=== PATIENT | female | born 1950 | race Caucasian/White ===

== ENCOUNTER 2016-11-22 13:06 | Emergency (ER) | payer SELFPAY ==
[~2016-11-22] VITALS: Ht 152.4 cm; Wt 76.0 kg
[2016-11-22 13:10] VITALS: Ht 152.4 cm; Wt 76.0 kg
[2016-11-23] MEDS ORDERED: ONDA4TAB14 PO (11:36)
[2016-11-23] MEDS ORDERED: IBUP-1542 PO (11:36)
[2016-11-23] MEDS ORDERED: HYDR-906 PO (11:36)
[2016-11-23] MEDS ORDERED: TAMS-14 PO (11:36)
== END 2016-11-22 20:01 | disposition left against medical advice (07) ==
LOC: E/R 13:06
DX: Z53.21 Procedure and treatment not carried out due to patient leaving prior to being seen by health care provider (principal)

== ENCOUNTER 2016-11-23 08:50 | Emergency (ER) | payer OTHER ==
[~2016-11-23] VITALS: Ht 157.5 cm; Wt 77.0 kg
[2016-11-23 08:56] VITALS: Ht 157.5 cm; Wt 77.0 kg
[2016-11-23] MEDS ORDERED: SOD CHLORIDE 0.9% 1,000 ML IV STA (09:34)
[2016-11-23 10:00] LABS: BASOPHIL # 0.1 10^3/ul (0.0-0.1); EOSINOPHILS # 0.1 10^3/ul (0.0-0.5); EOSINOPHILS % 1.8 % (0.0-7.0); HEMOGLOBIN 13.8 g/dl (12.0-16.0); LYMPHOCYTES % 40.2 % (15.0-51.0); MEAN CORPUSCULAR HEMOGLOBIN 29.4 pg (29.0-33.0); MEAN CORPUSCULAR HGB CONC 32.9 g/dl (32.0-37.0); MEAN CORPUSCULAR VOLUME 89.6 fl (82.0-101.0); MEAN PLATELET VOLUME 10.3 fl (7.4-10.4); MONOCYTE # 0.5 10^3/ul (0.3-0.9); MONOCYTES % 9.9 % (0.0-11.0); NEUTROPHIL # 2.4 10^3/ul (1.6-7.5); NEUTROPHILS % 46.9 % (39.0-77.0); PLATELET COUNT 282 10^3/UL (140-415); RED BLOOD COUNT 4.69 10^6/ul (4.20-5.40); RED CELL DISTRIBUTION WIDTH 13.5 % (11.5-14.5); WHITE BLOOD COUNT 5.1 10^3/ul (4.8-10.8)
[2016-11-23 10:08] LABS: ADD UMIC YES; UR ASCORBIC ACID NEGATIVE (NEGATIVE); UR BILIRUBIN (Dip) NEGATIVE (NEGATIVE); UR BLOOD (Dip) 1+ mg/dL (NEGATIVE); UR CLARITY SLIGHTLY CLOUDY (CLEAR); UR COLOR YELLOW (YELLOW); UR GLUCOSE (Dip) NEGATIVE (NEGATIVE); UR KETONES (Dip) NEGATIVE (NEGATIVE); UR LEUKOCYTE ESTERASE (Dip) TRACE Leu/ul (NEGATIVE); UR NITRITE (Dip) NEGATIVE (NEGATIVE); UR RBC 0 /HPF (0-5); UR SPECIFIC GRAVITY (Dip) 1.002 (1.003-1.030); UR TOTAL PROTEIN (Dip) NEGATIVE (NEGATIVE); UR UROBILINOGEN (Dip) NEGATIVE (NEGATIVE)
[2016-11-23 10:14] LABS: ALBUMIN 4.8 g/dl (3.3-4.9); ALBUMIN/GLOBULIN RATIO 1.14; BILIRUBIN,INDIRECT 0.3 mg/dl (0-1.1); BILIRUBIN,TOTAL 0.3 mg/dl (0.2-1.3); CALCIUM 9.7 mg/dl (8.4-10.2); CREATININE 0.87 mg/dl (0.44-1.00); POTASSIUM 3.9 mmol/L (3.5-5.1)
[2016-11-23] MEDS ORDERED: morphine 2 MG INJ IV ONE (10:30)
--- NOTE | 2016-11-23 11:23 | RADRPT ---
PROCEDURE: CT Abdomen and pelvis without contrast. CLINICAL INDICATION: Right lower quadrant pain for 3 days TECHNIQUE: CT scan of the abdomen and pelvis without contrast was performed on a multidetector hig h-resolution CT scan. . Coronal and sagittal reformatted images were obtained from the axial [facility] e images. Standard CT scan of the abdomen pelvis without contrast protocols were performed. The total exam CTDI equals 19.2 mGy and the total exam DLP equals 977.96 mGy-cm. One or more of the following dose reduction techniques were used: - Automated exposure control. - Adjustment of the mA and/or kV according to patient size. Use of iterative reconstruction technique. COMPARISON: None. FINDINGS: There is a 4 mm distal right ureteral calcified calculus located approximately 1 cm proximal from th e right ureteral vesicle junction resulting in mild right hydronephrosis and hydroureter. There is a punctate 1 ml non-obstructing inferior left renal calcified calculus. No other calcified urinary ca lculi. There is fullness of the left pelvocaliceal system but no definite hydronephrosis. The urinar y bladder is unremarkable. Status post hysterectomy. No adnexal masses. The appendix is not definitely visualized however there is no CT evidence of appendicitis. There is a small to moderate hiatal hernia with the stomach otherwise unremarkable. The small bowel is unrema rkable. Minimal diverticulosis of the proximal descending colon. No CT evidence of diverticulitis. R emainder the colon is unremarkable. Negative for intra-abdominal free air, free fluid, abscesses or lymphadenopathy. The liver spleen pancreas adrenal glands and gallbladder are unremarkable. No evidence of biliary du ctal dilation. There is a 1.2 cm sensory spleen in the lateral left knee. There is a fat containing periumbilical hernia without herniated bowel or strangulation. There is a midline inferior ventral abdominal wall hernia containing omental fat and small bowel but no evidenc e of strangulation. There is atherosclerotic vascular disease aorta and by iliac arteries but no evidence of aneurysm. T here is mild scarring at the lung bases which are otherwise unremarkable. There are degenerative changes lower thoracic and lumbar spine without acute osseous findings or ost eoblastic/osteolytic lesions IMPRESSION: 1. 4 mm distal right ureteral calcified calculus approximately 1 cm proximal from the right uretera l vesicle junction resulting in mild right obstructive uropathy. 2. Punctate 1 mm non-obstructing inferior left renal calcified calculus. No definite left hydroneph rosis. 3. Ventral midline inferior abdominal wall hernia containing fat and small bowel without strangulat ion. Additional periumbilical fat-containing hernia without herniated bowel or strangulation. 4. Minimal diverticulosis of the descending colon. No CT evidence of diverticulitis or appendicitis . RPTAT:AAJJ Physician Erich Date Time Electronically viewed and signed by Michelle Jiménez Physician on 11/23/2016 11:23 /
[2016-11-23] MEDS ORDERED: ONDA4TAB14 PO (11:36)
[2016-11-23] MEDS ORDERED: TAMS-14 PO (11:36)
[2016-11-23] MEDS ORDERED: HYDR-906 PO (11:36)
[2016-11-23] MEDS ORDERED: IBUP-1542 PO (11:36)
--- NOTE | 2016-11-23 11:40 | ERD ---
ER Documentation Chief Complaint Date/Time DATE: 11/23/16 TIME: 11:37 Chief Complaint sent by clinic for U/R/Q abd pain HPI 66-year-old female sent by her PCP for evaluation of right-sided abdominal pain. The patient states she has had pain for about 1 week intermittently. The pain is colicky, radiates from the right upper quadrant of the right lower quadrant. She has had associated nausea but no vomiting. She had a few days of diarrhea which has now resolved. She denies fever, hematuria, or dysuria. No chest pain or shortness of breath. ROS All systems reviewed and are negative except as per history of present illness. Medications Home Meds Active Scripts Ibuprofen* (Motrin*) 600 Mg Tab, 600 MG PO Q6H Y for PAIN AND OR ELEVATED TEMP, #30 TAB Prov:JEANA MARTI MD 11/23/16 Ondansetron (Ondansetron Odt) 4 Mg Tab.rapdis, 4 MG PO Q6H Y for NAUSEA AND/OR VOMITING, #10 TAB Prov:JEANA MARTI MD 11/23/16 Hydrocodone/Acetaminophen (Cupert[place] 5-325 Tablet) 1 Each Tablet, 1 TAB PO Q6H Y for PAIN, #7 TAB Prov:JEANA MARTI MD 11/23/16 Tamsulosin Hcl* (Flomax*) 0.4 Mg Cap.er.24h, 0.4 MG PO BID, #30 CAP Prov:JEANA MARTI MD 11/23/16 PMhx/Soc History of Surgery: Yes (hysterectomy) Hx Alcohol Use: No Hx Substance Use: No Hx Tobacco Use: No Smoking Status: Never smoker FmHx Family History: No diabetes Physical Exam Vitals Vital Signs Date Time Temp Pulse Resp B/P Pulse Ox O2 Delivery O2 Flow Rate FiO2 11/23/16 08:56 98.3 60 16 172/79 96 Physical Exam Const: Ill-appearing, no apparent distress, nontoxic Head: Atraumatic Eyes: Normal Conjunctiva ENT: Normal External Ears, Nose and Mouth. Neck: Full range of motion..~ No meningismus. Resp: Clear to auscultation bilaterally Cardio: Regular rate and rhythm, no murmurs Abd: Soft, right lower quadrant mild tenderness to palpation, mild tenderness in the right upper quadrant as well, non distended. No rebound or guarding. Normal bowel sounds Skin: No petechiae or rashes Back: No midline or flank tenderness Ext: No cyanosis, or edema Neur: Awake and alert Psych: Normal Mood and Affect Result Diagram: 11/23/1692911/23/16929 Results 24 hrs Laboratory Tests Test 11/23/16 09:30 11/23/16 09:42 White Blood Count 5.110^3/ul Red Blood Count 4.6910^6/ul Hemoglobin 13.8g/dl Hematocrit 42.0% Mean Corpuscular Volume 89.6fl Mean Corpuscular Hemoglobin 29.4pg Mean Corpuscular Hemoglobin Concent 32.9g/dl Red Cell Distribution Width 13.5% Platelet Count 71860^3/UL Mean Platelet Volume 10.3fl Neutrophils % 46.9% Lymphocytes % 40.2% Monocytes % 9.9% Eosinophils % 1.8% Basophils % 1.0% Nucleated Red Blood Cells % 0.0/100WBC Neutrophils # 2.410^3/ul Lymphocytes # 2.010^3/ul Monocytes # 0.510^3/ul Eosinophils # 0.110^3/ul Basophils # 0.110^3/ul Nucleated Red Blood Cells # 0.010^3/ul Sodium Level 143mmol/L Potassium Level 3.9mmol/L Chloride Level 105mmol/L Carbon Dioxide Level 29mmol/L Anion Gap 13 Blood Urea Nitrogen 14mg/dl Creatinine 0.87mg/dl Glucose Level 69mg/dl Calcium Level 9.7mg/dl Total Bilirubin 0.3mg/dl Direct Bilirubin 0.00mg/dl Indirect Bilirubin 0.3mg/dl Aspartate Amino Transf (AST/SGOT) 37IU/L Alanine Aminotransferase (ALT/SGPT) 38IU/L Alkaline Phosphatase 94IU/L Total Protein 9.0g/dl Albumin 4.8g/dl Globulin 4.20g/dl Albumin/Globulin Ratio 1.14 Lipase 98U/L Urine Color YELLOW Urine Clarity SLIGHTLY CLOUDY Urine pH 8.0 Urine Specific Bryant 1.002 Urine Ketones NEGATIVEmg/dL Urine Nitrite NEGATIVEmg/dL Urine Bilirubin NEGATIVEmg/dL Urine Urobilinogen NEGATIVEmg/dL Urine Leukocyte Esterase TRACELeu/ul Urine Microscopic RBC 0/HPF Urine Microscopic WBC 2/HPF Urine Hemoglobin 1+mg/dL Urine Glucose NEGATIVEmg/dL Urine Total Protein NEGATIVEmg/dl Current Medications Medications (Trade) Dose Ordered Sig/Audrey Route PRN Reason Start Time Stop Time Status Last Admin Dose Admin Sodium Chloride (NS) 1,000 ml @ 1,000 mls/hr Q1H STAT IV 11/23/16 09:34 11/23/16 10:33 DC 11/23/16 09:49 Morphine Sulfate (morphine) 2 mg ONCE ONCE IV 11/23/16 10:30 11/23/16 10:31 DC Procedures/MDM EMERGENT LABS AND DIAGNOSTIC STUDIES: Lab Results above were reviewed and interpreted by me. CBC normal BMP unremarkable Urinalysis shows 1+ hemoglobin, no infection Radiology Results as interpreted by Radiology below were reviewed by Mandy Marti MD: CT Abdomen and Pelvis: IMPRESSION: 1. 4 mm distal right ureteral calcified calculus approximately 1 cm proximal from the right ureteral vesicle junction resulting in mild right obstructive uropathy. 2. Punctate 1 mm non-obstructing inferior left renal calcified calculus. No definite left hydronephrosis. 3. Ventral midline inferior abdominal wall hernia containing fat and small bowel without strangulation. Additional periumbilical fat-containing hernia without herniated bowel or strangulation. 4. Minimal diverticulosis of the descending colon. No CT evidence of diverticulitis or appendicitis. RPTAT:AAJJ Physician Erich Date Time Electronically viewed and signed by Physician Erich on 11/23/2016 11:23 Initial Nursing notes reviewed. Previous Medical Records requested via the Electronic Health Record. EMERGENCY DEPARTMENT COURSE / MEDICAL DECISION MAKING: Patient's pain is likely secondary to renal colic secondary to a 4 mm ureteral stone on the right. There is no evidence of associated significant hydronephrosis or any evidence of pyelonephritis. There is also no evidence of diverticulitis, colitis, or appendicitis. Patient was treated with IV fluids and medications for pain and nausea. She will likely pass the stone. I will prescribe her Flomax, [place], Zofran, and ibuprofen. Follow-up with PCP was recommended. Return precautions were discussed at length. Patient was stable upon discharge. Patient's blood pressure was elevated (>120/80) but appears stable without evidence of hypertensive emergency or urgency. The patient was counseled about the risks of hypertension and urged to pursue outpatient monitoring and therapy within a week with their primary care physician. Departure Diagnosis: Primary Impression: Renal colic on right side Condition: Stable Patient Instructions: Kidney Stone W/ Colic Additional Instructions: Iam simon marcie con griffin medico primario en 1-2 braden. Si estas empeorando, o tienes fiebres, regresa a ala leonardo de emergencias. JEANA MARTI MD Nov 23, 2016 11:40
[2016-11-23 12:01] VITALS: BP 150/79; PULSE 80; RESP 20
== END 2016-11-23 12:04 | disposition home or self-care (01) ==
LOC: E/R 08:50
DX: N23 Unspecified renal colic (principal); R40.2252 Coma scale, best verbal response, oriented, at arrival to emergency department; R11.0 Nausea; R40.2142 Coma scale, eyes open, spontaneous, at arrival to emergency department; R40.2362 Coma scale, best motor response, obeys commands, at arrival to emergency department
CPT/HCPCS: 36415; 74176; 80053; 81001; 83690; 85025; J7030; Z7502

== ENCOUNTER 2017-05-05 08:20 | Day surgery (SDC) | END 2017-05-05 10:38 | disposition home or self-care (01) ==